=== PATIENT | male | born 1965 | race Caucasian/White ===

== ENCOUNTER 2016-12-06 10:59 | Emergency (ER) | payer OTHER, MEDICARE | END 2016-12-06 14:13 | disposition home or self-care (01) | LOC: ER 10:59 | DX: M54.16 Radiculopathy, lumbar region (principal); M25.522 Pain in left elbow; M25.552 Pain in left hip; M25.562 Pain in left knee; E11.9 Type 2 diabetes mellitus without complications; F17.210 Nicotine dependence, cigarettes, uncomplicated; Z90.49 Acquired absence of other specified parts of digestive tract; Z79.82 Long term (current) use of aspirin; Z79.899 Other long term (current) drug therapy; Z88.8 Allergy status to other drugs, medicaments and biological substances ==

== ENCOUNTER 2016-12-16 14:24 | Emergency (ER) | payer MEDICARE, OTHER | END 2016-12-16 19:07 | disposition left against medical advice (07) | LOC: ER 14:24 | DX: R10.9 Unspecified abdominal pain (principal); R19.7 Diarrhea, unspecified; E10.9 Type 1 diabetes mellitus without complications; F17.210 Nicotine dependence, cigarettes, uncomplicated; Z79.82 Long term (current) use of aspirin; Z79.899 Other long term (current) drug therapy; Z88.8 Allergy status to other drugs, medicaments and biological substances; Z90.49 Acquired absence of other specified parts of digestive tract | CPT/HCPCS: 36415; 96361; 96374; 96375; Q9963; Q9967 ==

== ENCOUNTER 2016-12-17 09:22 | Emergency (ER) | payer MEDICARE, OTHER | END 2016-12-17 14:15 | disposition critical access hospital (66) | LOC: ER 09:22 | DX: R78.81 Bacteremia (principal); E10.9 Type 1 diabetes mellitus without complications; K21.9 Gastro-esophageal reflux disease without esophagitis; E78.5 Hyperlipidemia, unspecified; Z79.82 Long term (current) use of aspirin; Z79.899 Other long term (current) drug therapy | CPT/HCPCS: 96361; 96365; 96375; 96376 ==

== ENCOUNTER 2016-12-17 09:22 | Observation (INO) | payer MEDICARE, OTHER ==
[~2016-12-17] VITALS: Ht 193 cm; Wt 117.1 kg
== END 2016-12-18 12:00 | disposition home or self-care (01) ==
LOC: ER 09:22 → MED 14:16
PROVIDERS: ADMIT Internal Medicine
DX: R10.13 Epigastric pain (principal); E87.1 Hypo-osmolality and hyponatremia; E87.2 Acidosis; E78.5 Hyperlipidemia, unspecified; E11.9 Type 2 diabetes mellitus without complications; Z88.6 Allergy status to analgesic agent; Z91.048 Other nonmedicinal substance allergy status; Z79.4 Long term (current) use of insulin; Z79.899 Other long term (current) drug therapy; Z90.49 Acquired absence of other specified parts of digestive tract; Z96.642 Presence of left artificial hip joint; Z96.652 Presence of left artificial knee joint; Z98.890 Other specified postprocedural states
CPT/HCPCS: 36415; 96361; 96365; 96366; G0378; Q9967